=== PATIENT | male | born 1960 | race African-American/Black ===

== ENCOUNTER 2017-09-14 10:50 | Emergency (ER) | payer OTHER ==
--- NOTE | 2017-09-14 11:02 | EDPHY ---
H & P Time Seen by Provider: 09/14/17 10:54 HPI/ROS: 57-year-old male presents from an Urgent Care with complaint of left arm redness and swelling, states he was sent here to get IV antibiotics. He was told he had a fever at the urgent care however does not have a fever here. He denies injury to his left elbow, he is able to move his elbow without difficulty. No known insect stings or trauma. Review of systems General ? fever no chills no weakness HEENT no eye pain no eye discharge. No eye redness, no sore throat Respiratory no cough, no shortness of breath Cardiac no chest pain, no peripheral edema GI no abdominal pain, no diarrhea, no constipation, no nausea, no vomiting no flank pain, no hematuria, no dysuria Musculoskeletal no myalgias, no joint pain Heme no easy bruising, no easy bleeding Endo no polyuria, no polydipsia Skin positive rashes, no pruritus Neuro no syncope, no dizziness, no headaches Psych is no suicidal ideation, no homicidal ideation Source: Patient Exam Limitations: No limitations - Personal History Current Tetanus/Diphtheria Vaccine: Yes Current Tetanus Diphtheria and Acellular Pertussis (TDAP): Yes - Medical/Surgical History Hx Asthma: No Hx Chronic Respiratory Disease: No Hx Diabetes: No Hx Cardiac Disease: Yes Hx Renal Disease: No Hx Cirrhosis: No Hx Alcoholism: No Hx HIV/AIDS: No Hx Splenectomy or Spleen Trauma: No - Family History Significant Family History: No pertinent family hx - Social History Smoking Status: Unknown if ever smoked Alcohol Use: Occasionally Drug Use: None - Physical Exam Exam: 57-year-old male alert and oriented no acute distress nontoxic appearance, afebrile HEENT atraumatic normocephalic, extraocular muscles intact, anicteric Oropharynx negative for erythema negative exudate, tolerating her own secretions Neck supple no meningismus Lungs clear to auscultation bilaterally Heart regular rate and rhythm without murmur rub or gallop Abdomen nondistended normoactive bowel sounds soft nontender Back no CVA tenderness, no step-offs, no spinal tenderness Extremities no cyanosis clubbing or edema Neuro alert and oriented, no focal deficits Left upper extremity-erythema and induration over left olecranon on extending approximately 3 cm above and 3 cm below the olecranon on the dorsal aspect, while the olecranon bursa is prominent does not look markedly enlarged nor feel fluctuant Full range of motion of elbow, no circumferential erythema Full range of motion at wrist digits, shoulder, no lymphangitic streaks sensation intact Constitutional: Initial Vital Signs Temperature (C) 37 C 09/14/17 11:03 Heart Rate 86 09/14/17 11:03 Respiratory Rate 14 09/14/17 11:03 Blood Pressure 123/81 H 09/14/17 11:03 O2 Sat (%) 95 09/14/17 11:03 O2 Delivery Mode Room Air Allergies/Adverse Reactions: No Known Allergies Allergy (Verified 09/14/17 11:01) Home Medications: Medication Instructions Recorded Aspirin 81mg 02/02/10 Clindamycin HCl [Clindamycin] 300 mg PO QID 10 Days #30 cap 09/14/17 HCTZ (*) 09/14/17 Medical Decision Making ED Course/Re-evaluation: Patient seen and evaluated for left arm redness and swelling. IV established Labs including CBC, lactate, blood culture sent CBC with elevated white blood cell count 19 Lactate normal Blood cultures pending Patient given IV clindamycin 900 mg Impression Left upper extremity cellulitis, with olecranon bursitis Plan Clindamycin 300 four times daily times 10 days Follow-up with primary care physician in 1-2 days Return if redness is expanding Differential Diagnosis: Differential diagnosis considered but not limited to: Insect bite, cellulitis, olecranon bursitis, infected olecranon bursitis, cellulitis with olecranon bursitis - Data Points Laboratory Results: 09/14/17 09/14/17 11:36 11:35 POC Sodium 132 mEq/L L mEq/L (135-145) POC Potassium 3.9 mEq/L mEq/L (3.3-5.0) POC Chloride 103.0 mEq/L mEq/L (97-110) POC Total CO2 28 mEq/L mEq/L (22-31) POC BUN 12 mg/dL mg/dL (7-23) POC Creatinine 1.1 mg/dL mg/dL (0.7-1.3) POC Glucose 100 mg/dL mg/dL (70-100) POC Lactic Acid Erickson 0.7 mmol/L mmol/L (0.7-2.1) POC Calcium 8.7 mg/dL mg/dL (8.5-10.4) Medications Given: Discontinued Medications Clindamycin Phosphate/Dextrose (Cleocin 900 Mg (Premix)) 50 mls @ 100 mls/hr IV EDNOW ONE PRN Reason: Protocol Stop: 09/14/17 11:48 Last Admin: 09/14/17 12:04 Dose: 50 mls Point of Care Test Results: CBC CBC Collection Date 09/14/17 CBC Collection Time 11:29 WBC 19.0 RBC 5.04 HGB 16.1 HCT 49.0 PLT 262 Neut # 15.8 Neut 83.4 LYMPH # 2.0 LYMPH 10.3 Other WBC # 1.2 Other WBC 6.3 MCV 97.2 Chemistry 09/14/17 11:35 POC Sodium 132 mEq/L L mEq/L (135-145) POC Potassium 3.9 mEq/L mEq/L (3.3-5.0) POC Chloride 103.0 mEq/L mEq/L (97-110) POC Total CO2 28 mEq/L mEq/L (22-31) POC BUN 12 mg/dL mg/dL (7-23) POC Creatinine 1.1 mg/dL mg/dL (0.7-1.3) POC Glucose 100 mg/dL mg/dL (70-100) POC Calcium 8.7 mg/dL mg/dL (8.5-10.4) Blood Gas/Lactic Acid-Venous 09/14/17 11:36 POC Lactic Acid Erickson 0.7 mmol/L mmol/L (0.7-2.1) Departure - Departure Disposition: Home, Routine, Self-Care Clinical Impression: Cellulitis of left arm, Olecranon bursitis of left elbow Condition: Good Instructions: Cellulitis (ED), Elbow Bursitis (ED) Additional Instructions: Ibuprofen every 6-8 hpours as need ed for pain or fever Acetaminophen every 4-6 jhours as needed for pain or fever Clindamycin 300 mg , 4 times a day for 10 days Follow up for a recheck in 24-48 hours with your primary care physician If swelling or redness is worsening , return to the hospital. Referrals: NONE *PRIMARY CARE P,. [Primary Care Provider] - As per Instructions Prescriptions: Clindamycin HCl [Clindamycin] 300 mg PO QID 10 Days #30 cap
[2017-09-14] MEDS ORDERED: CLINDAMYCIN 900 MG/DEXTROSE 50 ML IV ONE (11:19)
[2017-09-14 12:13] VITALS: BP 132/78
== END 2017-09-14 12:57 | disposition home or self-care (01) ==
LOC: CED 10:50
DX: L03.114 Cellulitis of left upper limb (principal); M70.22 Olecranon bursitis, left elbow; Z79.82 Long term (current) use of aspirin
CPT/HCPCS: 80048-PO; 83605-PO; 96365

== ENCOUNTER 2017-09-15 22:31 | Emergency (ER) | payer OTHER ==
--- NOTE | 2017-09-15 23:22 | EDPHY ---
H & P Stated Complaint: cellutitis in L forearm getting worse with IV ATBs and oral ATBs. Time Seen by Provider: 09/15/17 22:51 HPI/ROS: CC: Seen yesterday for cellulitis of LUE. Getting worse. HPI: This 57-year-old male with past medical history of hypertension presents to the emergency department today with his for a recheck of the cellulitis of his left upper extremity. He was seen yesterday morning at an urgent care and was sent to the ER for IV antibiotics. He reportedly had a fever at the urgent care but does not know how high it was. He has no documented fever on yesterday's ER record. He denies any type of trauma to his arm. He states he felt a rough patch on his elbow last week and then the elbow began to swell about 4 days ago. He took some Tylenol and waited until yesterday to go to the urgent care. During his ER visit yesterday he had a CBC which showed a white blood cell count of 19, a normal basic metabolic panel and lactic acid. Blood cultures were also drawn. He was given an IV dose of clindamycin 900mg and sent home with oral clindamycin 300mg QID. He states he took his 4th dose of the oral clindamycin this evening. He has an appointment with his primary care provider tomorrow, 09/16/17 at 2:30pm but his thought the redness was spreading and wanted him checked sooner. He has not noted a fever at home. The arm is slightly uncomfortable but he states he still has good range of motion. REVIEW OF SYSTEMS: Constitutional: No fever, no chills. Eyes: No discharge. ENT: No sore throat. Respiratory: No cough, no shortness of breath. Cardiac: No chest pain, no palpitations. Gastrointestinal: No abdominal pain, no vomiting. Musculoskeletal: No back pain. Skin: See HPI; No open wounds. Neurological: No headache. Source: Patient, Family () - Personal History Current Tetanus Diphtheria and Acellular Pertussis (TDAP): Yes - Medical/Surgical History PMH: PMH: HTN PSH: Lump on neck FH: Mother - CAD; Father - Multiple myeloma NKDA Medications: HCTZ 25 mg daily; Clindamycin 300 mg four times a day SOCIAL: No tobacco products, rare ETOH, no marijuana or other drugs PCP: Dr. Brien Cao - [facility] in [facility] Asthma: No Hx Chronic Respiratory Disease: No Hx Diabetes: No Hx Cardiac Disease: Yes Hx Renal Disease: No Hx Cirrhosis: No Hx Alcoholism: No Hx HIV/AIDS: No Hx Splenectomy or Spleen Trauma: No Other PMH: hypertension, arthritis - Social History Smoking Status: Unknown if ever smoked - Physical Exam Exam: General Appearance: Alert, no distress. Eyes: Pupils equal and round no pallor or injection. ENT, Mouth: Mucous membranes are moist. Respiratory: There are no retractions, lungs are clear to auscultation. Cardiovascular: Regular rate and rhythm. Gastrointestinal: Abdomen is soft and nontender. Neurological: Awake and alert, sensory and motor exams grossly normal. Skin: Warm and dry. Musculoskeletal: Neck is supple nontender. Left upper extremity is indurated and erythematous about the dorsolateral aspect of the arm both above and below the olecranon. No crepitus or open wounds. Pulses normal. No sign of compartment syndrome or necrotizing fasciitis. Normal flexion and extension at elbow. 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 Psychiatric: Patient is oriented X 3, there is no agitation. DIFFERENTIAL DIAGNOSIS: After history and physical exam differential diagnosis was considered for but not limited to: cellulitis, necrotizing fasciitis, compartment syndrome, olecranon bursitis, gout Constitutional: Initial Vital Signs Temperature (C) 99.3 F 09/15/17 22:46 Heart Rate 93 09/15/17 22:46 Respiratory Rate 18 09/15/17 22:46 Blood Pressure 117/74 09/15/17 22:46 O2 Sat (%) 92 09/15/17 22:46 O2 Delivery Mode Room Air Allergies/Adverse Reactions: No Known Allergies Allergy (Verified 09/15/17 22:45) Home Medications: Medication Instructions Recorded Aspirin 81mg 02/02/10 Clindamycin HCl [Clindamycin] 300 mg PO QID 10 Days #30 cap 09/14/17 HCTZ (*) 09/14/17 Medical Decision Making ED Course/Re-evaluation: The patient was seen and examined. Vital signs reviewed. Prior record reviewed. Patient's states that the swelling and erythema have increased since last night's ER visit. There is no skin marker present outlining the prior area of induration and erythema but based on the description in the chart it does seem to have increased. An IV was placed and the patient was given 2 g of ceftriaxone as well as 600 mg of clindamycin IV piggyback. White blood cell count was approximately 19 as it was on yesterday's ER visit. Lactic acid was normal. Blood cultures from yesterday's ER visit are still pending. The patient was offered admission but has declined. He has an appointment with his primary care provider at 2:30 p.m. today (September 16). I have discussed signs of compartment syndrome, c. diff, and other symptoms that should prompt him to return to the emergency room immediately with both the patient and his . - Data Points Laboratory Results: Laboratory Results 09/15/17 23:52 09/15/17 09/15/17 09/15/17 23:58 23:57 23:52 WBC 18.90 10^3/uL H 10^3/uL (3.80-9.50) RBC 4.79 10^6/uL 10^6/uL (4.40-6.38) Hgb 15.4 g/dL g/dL (13.7-17.5) Hct 45.0 % % (40.0-51.0) MCV 93.9 fL fL (81.5-99.8) MCH 32.2 pg pg (27.9-34.1) MCHC 34.2 g/dL g/dL (32.4-36.7) RDW 14.1 % % (11.5-15.2) Plt Count 239 10^3/uL 10^3/uL (150-400) MPV 9.5 fL fL (8.7-11.7) Neut % (Auto) 79.1 % H % (39.3-74.2) Lymph % (Auto) 11.7 % L % (15.0-45.0) [place] % (Auto) 7.8 % % (4.5-13.0) Eos % (Auto) 0.3 % L % (0.6-7.6) Baso % (Auto) 0.3 % % (0.3-1.7) Nucleat RBC Rel Count 0.0 % % (0.0-0.2) Absolute Neuts (auto) 14.93 10^3/uL H 10^3/uL (1.70-6.50) Absolute Lymphs (auto) 2.22 10^3/uL 10^3/uL (1.00-3.00) Absolute Monos (auto) 1.48 10^3/uL H 10^3/uL (0.30-0.80) Absolute Eos (auto) 0.06 10^3/uL 10^3/uL (0.03-0.40) Absolute Basos (auto) 0.06 10^3/uL 10^3/uL (0.02-0.10) Absolute Nucleated RBC 0.00 10^3/uL 10^3/uL (0-0.01) Immature Gran % 0.8 % % (0.0-1.1) Immature Gran # 0.15 10^3/uL H 10^3/uL (0.00-0.10) POC Blood Source VENOUS Patient Temperature 37.4 DEGREES DEGREES POC VBG pH 7.44 H (7.31-7.42) POC VBG pCO2 37 mmHg L mmHg (40-44) POC VBG pO2 45 mmHg H mmHg (35-40) POC VBG HCO3 26 mEq/L mEq/L (22-26) POC VBG Total CO2 27 mEq/L mEq/L (21-27) POC VBG Base Excess 1.0 mEq/L mEq/L (-2.5-2.5) POC Mix VBG O2 Sat 82 % H % (65-75) POC Sodium 135 mEq/L mEq/L (135-145) POC Potassium 3.3 mEq/L mEq/L (3.3-5.0) POC Chloride 99.0 mEq/L mEq/L (97-110) POC Total CO2 25 mEq/L mEq/L (22-31) POC BUN 13 mg/dL mg/dL (7-23) POC Creatinine 1.1 mg/dL mg/dL (0.7-1.3) POC Glucose 103 mg/dL H mg/dL (70-100) POC Lactic Acid Erickson 1.0 mmol/L D mmol/L (0.7-2.1) POC Calcium 8.6 mg/dL mg/dL (8.5-10.4) Medications Given: Discontinued Medications Ceftriaxone Sodium 2 gm/ (Sodium Chloride) 50 mls @ 100 mls/hr IV EDNOW ONE PRN Reason: Protocol Stop: 09/16/17 00:06 Last Admin: 09/16/17 00:08 Dose: 50 mls Clindamycin Phosphate/Dextrose (Cleocin 600 Mg (Premix)) 50 mls @ 100 mls/hr IV EDNOW ONE PRN Reason: Protocol Stop: 09/16/17 00:06 Last Admin: 09/16/17 00:46 Dose: 50 mls Point of Care Test Results: Chemistry 09/15/17 23:57 POC Sodium 135 mEq/L mEq/L (135-145) POC Potassium 3.3 mEq/L mEq/L (3.3-5.0) POC Chloride 99.0 mEq/L mEq/L (97-110) POC Total CO2 25 mEq/L mEq/L (22-31) POC BUN 13 mg/dL mg/dL (7-23) POC Creatinine 1.1 mg/dL mg/dL (0.7-1.3) POC Glucose 103 mg/dL H mg/dL (70-100) POC Calcium 8.6 mg/dL mg/dL (8.5-10.4) Blood Gas/Lactic Acid-Arterial 09/15/17 23:58 POC Blood Source VENOUS Blood Gas/Lactic Acid-Venous 09/15/17 23:58 POC VBG pH 7.44 H (7.31-7.42) POC VBG pCO2 37 mmHg L mmHg (40-44) POC VBG pO2 45 mmHg H mmHg (35-40) POC VBG HCO3 26 mEq/L mEq/L (22-26) POC VBG Total CO2 27 mEq/L mEq/L (21-27) POC VBG Base Excess 1.0 mEq/L mEq/L (-2.5-2.5) POC Mix VBG O2 Sat 82 % H % (65-75) POC Lactic Acid Erickson 1.0 mmol/L D mmol/L (0.7-2.1) Departure - Departure Disposition: Home, Routine, Self-Care Clinical Impression: Cellulitis Qualifiers: Site of cellulitis: extremity Site of cellulitis of extremity: upper extremity Laterality: left Qualified Code(s): L03.114 - Cellulitis of left upper limb Condition: Good Instructions: Cellulitis (ED) Additional Instructions: Recheck IMMEDIATELY if fever, increased pain, increased swelling or increased redness. Keep the extremity elevated above the heart as much as possible. Continue the clindamycin as prescribed and your 1st ER visit. Otherwise, keep your appointment with your regular primary care provider today at 2:30 p.m.. On your 1st ER visit you were given clindamycin 900 mg IV. On your 2nd ER visit you were given ceftriaxone 2 g IV and clindamycin 600mg IV. Your white blood cell count was 19 on both ER visits, year lactic acid was normal on both visits. Blood cultures from her 1st ER visit are pending. Referrals: Patient,NotPresent [Primary Care Provider] - As per Instructions
[2017-09-15] MEDS ORDERED: CLINDAMYCIN 600 MG/DEXTROSE 50 ML IV ONE (23:37)
[2017-09-16 01:32] LABS: PLATELET COUNT 239 10^3/uL (150-400)
[2017-09-16 02:14] VITALS: BP 150/71
== END 2017-09-16 02:17 | disposition home or self-care (01) ==
LOC: CED 22:31
DX: L03.114 Cellulitis of left upper limb (principal); I10 Essential (primary) hypertension; Z79.82 Long term (current) use of aspirin
CPT/HCPCS: 80048-PO; 83605-PO; 96365; J0696